=== PATIENT | male | born 2000 | race Two or more races ===

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

== ENCOUNTER 2018-01-02 09:57 | Emergency (ER) | payer OTHER ==
[~2018-01-02] VITALS: Ht 177.8 cm; Wt 72.6 kg
[2018-01-02 10:05] VITALS: BP 124/86; Ht 177.8 cm; Wt 72.6 kg
== END 2018-01-02 10:50 | disposition home or self-care (01) ==
LOC: ED 09:57
DX: S51.811D Laceration without foreign body of right forearm, subsequent encounter (principal); X58.XXXD Exposure to other specified factors, subsequent encounter

== ENCOUNTER 2018-01-08 06:11 | Emergency (ER) | payer OTHER ==
[~2018-01-08] VITALS: Ht 177.8 cm; Wt 72.8 kg
[2018-01-08 06:18] VITALS: BP 112/62; Ht 177.8 cm; Wt 72.8 kg
== END 2018-01-08 06:36 | disposition home or self-care (01) ==
LOC: ED 06:11
DX: S51.811D Laceration without foreign body of right forearm, subsequent encounter (principal); W45.8XXD Other foreign body or object entering through skin, subsequent encounter